=== PATIENT | male | born 1995 | race Caucasian/White ===

== ENCOUNTER 2017-11-10 17:49 | Emergency (ER) | payer OTHER ==
[2017-11-10] MEDS ORDERED: HYDROCODONE/ACETAMINOPHEN 5-325 MG TABLET PO ONE (19:39)
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
[2017-11-10 21:20] VITALS: BP 114/77
== END 2017-11-10 21:17 | disposition home or self-care (01) ==
LOC: ER 17:49
DX: M54.2 Cervicalgia (principal); M54.6 Pain in thoracic spine; M79.1 Myalgia; V89.2XXA Person injured in unspecified motor-vehicle accident, traffic, initial encounter; F17.210 Nicotine dependence, cigarettes, uncomplicated
CPT/HCPCS: 72125; 72128; 99284